=== PATIENT | male | born 1990 | race Caucasian/White ===

== ENCOUNTER 2017-07-18 05:57 | Day surgery (SDC) | payer MEDICAID ==
[2017-07-18] MEDS ORDERED: ceFAZolin IV 1 gm in Dextrose 1 GM/50 ML BAG IVPB ONE (07:22)
[2017-07-18] MEDS ORDERED: Lidocaine/Epi 1% 1:100000 20 ML IJ ONE (07:23)
[2017-07-18] MEDS ORDERED: EPINEPHrine 1:1000 Nasal Sol(30mL) ONE (07:23)
[2017-07-18] MEDS ORDERED: Propofol 10 mg/ml Inj (20 ML) ONE ×2 (07:41→09:00)
[2017-07-18] MEDS ORDERED: Midazolam 2 MG/2 ML VIAL ONE (07:42)
[2017-07-18] MEDS ORDERED: Lactated Ringer's 1,000 ML IV ONE (07:45)
[2017-07-18] MEDS ORDERED: Acetaminophen-Codeine 300/30 mg Tab PO PRN (07:46)
[2017-07-18] MEDS ORDERED: Dextrose 5%/0.45% NS 1,000 ML IV SCH (08:00)
[2017-07-18] MEDS ORDERED: Neostigmine Methylsulfate 3mg/3ml Syringe IV ONE (09:03)
[2017-07-18] MEDS: HYDROmorphone 0.5 mg/0.5 ml ISec IVP PRN ×2 (10:05→10:33)
[2017-07-18 11:37] VITALS: RESP 18
[2017-07-18 13:05] VITALS: BP 131/77; PULSE 67; TEMP 98.4; O2SAT 98
--- NOTE | 2017-07-18 18:16 | OP ---
PROCEDURE DATE: 07/18/2017 PREOPERATIVE DIAGNOSES: Deviated septum, enlarged turbinates, and sinusitis. POSTOPERATIVE DIAGNOSES: Deviated septum, enlarged turbinates, and sinusitis. PROCEDURE: Septoplasty; bilateral inferior turbinate reduction, endoscopic; endoscopic bilateral maxillary antrostomy; endoscopic bilateral ethmoidectomy. FINDINGS: Deviated septum, enlarged turbinates, and chronic sinusitis. The ethmoid sinuses had thickened mucosa. Maxillary antrum was stenosed on both sides. DESCRIPTION OF PROCEDURE: The patient was brought into the room, placed in supine position, anesthesia was initiated through an ET tube. The patient was draped in usual manner. Adrenaline-soaked pledgets were inserted into the nasal cavity that remained there for at least 5 minutes and removed. The septum was injected with lidocaine with epinephrine on both sides. A Longfellow incision was made on the left and mucoperichondrial flap was raised. A vertical incision was made in the cartilage leaving a 1.5 cm anterior and superior strut and a mucoperichondrial flap was raised on the other side. Deviated portion of the cartilage and bone were removed using forceps and chisel. A quilting suture was used to suture the 2 flaps together and close the Longfellow incision. A 0-degree scope was inserted into the nasal cavity. The inferior turbinates were noted to be enlarged and reduced in size, going from an inferior to superior, anterior to posterior direction, first on the left, then on the right. Bleeding was controlled using suction cautery. Next, navigation was set up and used throughout the case in order to ensure that the skull base and orbit were not entered. Attention was turned to the left. The middle turbinate was injected with lidocaine with epinephrine and medialized. The uncinate process was medialized using a Amberson elevator and removed using forceps. A debrider was used to enter the ethmoid bulla inferomedially, going posteriorly to the basal lamella, then anteriorly and superiorly until the ethmoid bulla was removed. The basal lamella was entered. Posterior ethmoid cells were entered and opened. Skull base was identified and followed anteriorly all the way to the area of the anterior ethmoid air cells. A curved suction hooked up to navigation was used to locate the maxillary antrum, which was noted to be stenosed and opened using forceps. Bleeding was controlled using suction cautery and adrenaline-soaked pledgets. Attention was turned to the other side. The middle turbinate was injected with lidocaine with epinephrine and medialized using a Amberson elevator. The uncinate process was medialized using a Amberson elevator and removed. The ethmoid bulla was entered using a debrider, going posteriorly to the basal lamella, then anteriorly and superiorly until the ethmoid bulla was removed. The basal lamella was entered. Posterior ethmoid cells were entered and opened. The skull base was identified and followed anteriorly all the way to the area of the anterior ethmoid air cells. Curved suction hooked up to navigation was used to locate the maxillary antrum, which was noted to be stenosed and opened using forceps. Bleeding was controlled on both sides using suction cautery and adrenaline-soaked pledgets. Splints were placed. Stents were placed. The patient was taken off anesthesia and taken to recovery room in a stable manner. Oswaldo Cruz MD
== END 2017-07-18 12:10 | disposition home or self-care (01) ==
LOC: C.SDS 05:57
PROVIDERS: ATTEND Otolaryngology
DX: J34.2 Deviated nasal septum (principal); J34.3 Hypertrophy of nasal turbinates; J32.0 Chronic maxillary sinusitis; J32.2 Chronic ethmoidal sinusitis
CPT/HCPCS: 30520; 31254; 31256; 88304; J0690; J1100; J1170; J2001; J2250; J2405; J2704; J2710; J3010; J7120